=== PATIENT | male | born 1935 | race Caucasian/White ===

== ENCOUNTER 2017-02-20 10:32 | Emergency (ER) | payer MEDICARE, OTHER, BC ==
[~2017-02-20] VITALS: Ht 172.7 cm; Wt 79.1 kg
[~2017-02-20 10:32] MED LIST: ALTACE10 MG OR; ALTACE10 MG PO; CORTISPORIN OTI10 M1 AD; DILTIAZEM240 M1 OR; DILTIAZEM240 M1 PO; FLEXERIL OR; FLUARIX QUADRIV1 IN1 IM; GLIMEPIRIDE4 MG OR; GLIMEPIRIDE4 MG PO; HALFPRIN162 MG OR; ISMO20 MG OR; JANUVIA100 MG OR; JANUVIA100 MG PO; LORTAB 7.5 PO; LOTRISONE EX; MEDDOSEPAK PO; METFORMIN1000 MG OR; METFORMIN1000 MG PO; METOPROL TAR25 MG PO; METOPROL TAR50 MG OR; NEXIUM40 M1 OR; NEXIUM40 M1 PO; PRANDIN1 MG PO; PRILOSEC20 MG PO; TRUETRACK XX; VIAGRA100 MG PO
[2017-02-20] MEDS ORDERED: AMOXICILLIN500 M2 PO (10:55)
[2017-02-20 12:12] VITALS: BP 155/76
== END 2017-02-20 12:41 | disposition home or self-care (01) ==
LOC: ED 10:32
DX: M65.342 Trigger finger, left ring finger (principal)

== ENCOUNTER 2017-04-26 22:02 | Observation (INO) | payer MEDICARE, OTHER, BC ==
[~2017-04-26] VITALS: Ht 170.2 cm; Wt 81.1 kg
[~2017-04-26 22:02] MED LIST changes: +AMOXICILLIN500 M2 PO
[2017-04-26] MEDS ORDERED: HYDROCHLOROT25 MG PO (22:41)
[2017-04-26] MEDS ORDERED: NOVOLOG MIX SC (22:42)
[2017-04-26 22:47] LABS: HEMATOCRIT 36.1 % (39.0-50.0); IMMATURE GRANULOCYTES 0.5 % (0.0-1.0); MEAN CELL VOLUME 85.5 fL CALC (80.0-100.0); MEAN CORPUSCULAR HGB 30.8 pG CALC (26.0-32.0); NEUT# 2.73 thou/uL (1.82-7.42); RED BLOOD COUNT 4.22 mill/uL (4.70-6.10); RED CELL DISTRI WIDTH 13.7 % (11.5-15.5)
[2017-04-26 23:00] LABS: ALBUMIN 4.5 g/dL (3.2-5.0); ALKALINE PHOSPHATASE 81 u/l (38-126); ANION GAP 15 (6-22 (CALC)); BILIRUBIN, TOTAL 0.6 mg/dL (0.0-1.4); BUN 8 mg/dL (8-23); BUN/CREATININE RATIO 10 (12-20 (CALC)); CARBON DIOXIDE 25 mmol/l (22-30); CHLORIDE 86 mmol/l (95-108); CREATININE 0.8 mg/dL (0.7-1.3); GFR > 60 ML/MIN (>=60 (CALC)); GFR FOR AFR.AMER. > 60 ML/MIN (>=60 (CALC)); GLUCOSE 102 mg/dL (82-115); POTASSIUM 3.8 mmol/l (3.5-5.1); SGOT/AST 22 u/l (19-48); SGPT/ALT 23 u/l (11-66); SODIUM 123 mmol/l (137-146); TOTAL PROTEIN 7.1 g/dL (6.3-8.2)
[2017-04-27 01:00] VITALS: BP 144/63
[2017-04-27 01:47] LABS: URINE BILIRUBIN - DIPSTICK NEGATIVE (NEGATIVE); URINE BLOOD DIPSTICK NEGATIVE (NEGATIVE); URINE COLOR YELLOW; URINE GLUCOSE - DIPSTICK NEGATIVE (NEGATIVE); URINE KETONE NEGATIVE (NEGATIVE); URINE LEUK ESTERASE NEGATIVE (NEGATIVE); URINE NITRITE - DIPSTICK NEGATIVE (Negative); URINE PROTEIN - DIPSTICK NEGATIVE (NEG-TRACE); URINE UROBILINOGEN - DIPSTICK 0.2 E.U./dL (0.2)
[2017-04-27 01:50] LABS: URINE CLARITY CLEAR
[2017-04-27 08:30] VITALS: BP 169/59
[2017-04-27 09:23] LABS: BARBITURATES NEGATIVE (NEGATIVE); COCAINE NEGATIVE (NEGATIVE); METHADONE NEGATIVE (NEGATIVE); OXCYCODONE NEGATIVE (NEGATIVE); TETRAHYDROCANNABIONOL NEGATIVE (NEGATIVE); TRICYLIC ANTIDEPRESSANTS NEGATIVE (NEGATIVE)
[2017-04-27 10:03] LABS: ANION GAP 17 (6-22 (CALC)); BUN 8 mg/dL (8-23); BUN/CREATININE RATIO 10 (12-20 (CALC)); CALCIUM 9.1 mg/dL (8.4-10.2); CARBON DIOXIDE 23 mmol/l (22-30); CHLORIDE 92 mmol/l (95-108); CREATININE 0.8 mg/dL (0.7-1.3); GFR > 60 ML/MIN (>=60 (CALC)); GFR FOR AFR.AMER. > 60 ML/MIN (>=60 (CALC)); GLUCOSE 290 mg/dL (82-115); POTASSIUM 4.8 mmol/l (3.5-5.1); SODIUM 128 mmol/l (137-146)
[2017-04-27] MEDS ORDERED: ALTACE10 MG PO (10:16)
[2017-04-27 11:08] VITALS: BP 158/68
[2017-04-27 15:27] LABS: ANION GAP 15 (6-22 (CALC)); BUN 9 mg/dL (8-23); BUN/CREATININE RATIO 11 (12-20 (CALC)); CALCIUM 9.2 mg/dL (8.4-10.2); CARBON DIOXIDE 25 mmol/l (22-30); CHLORIDE 95 mmol/l (95-108); CREATININE 0.9 mg/dL (0.7-1.3); GFR > 60 ML/MIN (>=60 (CALC)); GFR FOR AFR.AMER. > 60 ML/MIN (>=60 (CALC)); GLUCOSE 203 mg/dL (82-115); POTASSIUM 4.8 mmol/l (3.5-5.1); SODIUM 131 mmol/l (137-146)
== END 2017-04-27 16:00 | disposition home or self-care (01) ==
LOC: ED 22:02 → ED-I 04-27 00:13 → ED 04-27 00:28 → MS2 04-27 00:29
PROVIDERS: Emergency Medicine; ADMIT Internal Medicine; ATTEND Internal Medicine
DX: E87.1 Hypo-osmolality and hyponatremia (principal); T50.2X5A Adverse effect of carbonic-anhydrase inhibitors, benzothiadiazides and other diuretics, initial encounter; E87.8 Other disorders of electrolyte and fluid balance, not elsewhere classified; I10 Essential (primary) hypertension; E11.9 Type 2 diabetes mellitus without complications; G89.29 Other chronic pain; M54.5 Low back pain; Z79.4 Long term (current) use of insulin

== ENCOUNTER 2017-10-20 12:14 | Observation (INO) | payer MEDICARE, OTHER, BC ==
[~2017-10-20] VITALS: Ht 170.2 cm; Wt 81.7 kg
[~2017-10-20 12:14] MED LIST changes: +HYDROCHLOROT25 MG PO; +NOVOLOG MIX SC
[2017-10-20 12:54] LABS: HEMATOCRIT 40.5 % (39.0-50.0); IMMATURE GRANULOCYTES 0.2 % (0.0-1.0); MEAN CELL VOLUME 87.5 fL CALC (80.0-100.0); MEAN CORPUSCULAR HGB 30.2 pG CALC (26.0-32.0); MEAN CORPUSCULAR HGB CONC 34.6 g/L CALC (32.0-36.0); NEUT# 2.75 thou/uL (1.82-7.42); RED BLOOD COUNT 4.63 mill/uL (4.70-6.10); RED CELL DISTRI WIDTH 13.6 % (11.5-15.5)
[2017-10-20 13:05] LABS: ALBUMIN 4.3 g/dL (3.2-5.0); ALKALINE PHOSPHATASE 85 u/l (38-126); ANION GAP 12 (6-22 (CALC)); BILIRUBIN, TOTAL 0.6 mg/dL (0.0-1.4); BUN 9 mg/dL (8-23); BUN/CREATININE RATIO 10 (12-20 (CALC)); CARBON DIOXIDE 26 mmol/l (22-30); CHLORIDE 98 mmol/l (95-108); CREATININE 0.9 mg/dL (0.7-1.3); GFR > 60 ML/MIN (>=60 (CALC)); GFR FOR AFR.AMER. > 60 ML/MIN (>=60 (CALC)); POTASSIUM 3.8 mmol/l (3.5-5.1); SGOT/AST 23 u/l (19-48); SGPT/ALT 35 u/l (11-66); SODIUM 132 mmol/l (137-146); TOTAL PROTEIN 7.7 g/dL (6.3-8.2)
[2017-10-20 16:00] VITALS: BP 182/91
[2017-10-20 19:15] VITALS: BP 157/60
[2017-10-20 23:41] VITALS: BP 149/88
[2017-10-21 04:30] LABS: HEMATOCRIT 38.9 % (39.0-50.0); HEMOGLOBIN 13.2 g/dl (14.0-18.0); IMMATURE GRANULOCYTES 0.4 % (0.0-1.0); MEAN CELL VOLUME 89.4 fL CALC (80.0-100.0); MEAN CORPUSCULAR HGB 30.3 pG CALC (26.0-32.0); MEAN CORPUSCULAR HGB CONC 33.9 g/L CALC (32.0-36.0); NEUT# 2.25 thou/uL (1.82-7.42); RED BLOOD COUNT 4.35 mill/uL (4.70-6.10); RED CELL DISTRI WIDTH 13.7 % (11.5-15.5)
[2017-10-21 04:48] LABS: ALBUMIN 3.5 g/dL (3.2-5.0); ALKALINE PHOSPHATASE 69 u/l (38-126); ANION GAP 10 (6-22 (CALC)); BILIRUBIN, TOTAL 0.4 mg/dL (0.0-1.4); BUN 10 mg/dL (8-23); BUN/CREATININE RATIO 10 (12-20 (CALC)); CALCULATED LDLCHOLESTEROL 84 mg/dL (62-129 (CALC)); CARBON DIOXIDE 28 mmol/l (22-30); CHLORIDE 100 mmol/l (95-108); CHOLESTEROL HDL RATIO 3.6 (<4.4 (CALC)); CREATININE 0.9 mg/dL (0.7-1.3); GFR > 60 ML/MIN (>=60 (CALC)); GFR FOR AFR.AMER. > 60 ML/MIN (>=60 (CALC)); HDL CHOLESTEROL 38 mg/dL (>=40); POTASSIUM 3.8 mmol/l (3.5-5.1); SGOT/AST 16 u/l (19-48); SGPT/ALT 30 u/l (11-66); SODIUM 135 mmol/l (137-146); TOTAL CHOLESTEROL 137 mg/dl (0-199); TOTAL TRIGLYCERIDES 79 mg/dl (30-149); VLDL CHOLESTROL 16 mg/dl (0-38 (CALC))
[2017-10-21 04:52] LABS: TOTAL PROTEIN 6.1 g/dL (6.3-8.2)
[2017-10-21 05:12] VITALS: BP 123/57
[2017-10-21 08:12] VITALS: BP 174/71
[2017-10-21] MEDS ORDERED: TRUETRACK XX (08:38)
[2017-10-21] MEDS ORDERED: METFORMIN1000 MG PO (08:38)
[2017-10-21 12:22] VITALS: BP 147/72
== END 2017-10-21 12:30 | disposition home or self-care (01) ==
LOC: ED 12:14 → ED-I 13:35 → ED 14:23 → MS2 14:24
PROVIDERS: Emergency Medicine; ADMIT Internal Medicine Geriatric Medicine; ATTEND Internal Medicine Geriatric Medicine
DX: I10 Essential (primary) hypertension (principal); E87.1 Hypo-osmolality and hyponatremia; E11.42 Type 2 diabetes mellitus with diabetic polyneuropathy; M19.90 Unspecified osteoarthritis, unspecified site; I25.10 Atherosclerotic heart disease of native coronary artery without angina pectoris; R07.9 Chest pain, unspecified

== ENCOUNTER 2018-08-14 22:09 | Emergency (ER) | payer MEDICARE, BC ==
[~2018-08-14] VITALS: Ht 172.7 cm; Wt 80.0 kg
[~2018-08-14 22:09] MED LIST changes: +HYDRALAZINE25 MG PO; +RAMIPRIL2.5 MG PO
[2018-08-14] MEDS ORDERED: LOPRESSOR50 M2 PO (23:08)
[2018-08-14 23:36] VITALS: BP 134/60
== END 2018-08-14 23:36 | disposition home or self-care (01) ==
LOC: ED 22:09
DX: I10 Essential (primary) hypertension (principal); E11.9 Type 2 diabetes mellitus without complications

== ENCOUNTER 2018-08-19 19:28 | Emergency (ER) | payer MEDICARE, BC ==
[~2018-08-19] VITALS: Ht 172.7 cm; Wt 82.0 kg
[~2018-08-19 19:28] MED LIST changes: +LOPRESSOR50 M2 PO
[2018-08-19 22:34] VITALS: BP 132/61
== END 2018-08-19 22:36 | disposition home or self-care (01) ==
LOC: ED 19:28
DX: I10 Essential (primary) hypertension (principal); E11.9 Type 2 diabetes mellitus without complications

== ENCOUNTER 2018-08-21 17:09 | Emergency (ER) | payer MEDICARE, BC ==
[~2018-08-21] VITALS: Ht 172.7 cm; Wt 81.8 kg
[2018-08-21 20:34] VITALS: BP 165/72
== END 2018-08-21 20:33 | disposition home or self-care (01) ==
LOC: ED 17:09
DX: I10 Essential (primary) hypertension (principal); E11.9 Type 2 diabetes mellitus without complications

== ENCOUNTER 2019-05-12 15:35 | Observation (INO) | payer MEDICARE, BC ==
[~2019-05-12] VITALS: Ht 172.7 cm; Wt 82.0 kg
--- NOTE | 2019-05-12 15:35 | NUR ---
PT DIRECTLY TO ROOM VIA WHEELCHAIR.
--- NOTE | 2019-05-12 15:55 | NUR ---
AFTER NITRO ADMINISTRATION PAIN NOW 4/10 AND BP 159/69.
[2019-05-12] MEDS ORDERED: NEXIUM40 M1 PO (16:03)
[2019-05-12] MEDS ORDERED: SUPER B COM2 PO (16:04)
[2019-05-12] MEDS ORDERED: DOXAZOSIN4 MG PO (16:05)
--- NOTE | 2019-05-12 16:06 | NUR ---
PT STATES PAIN STARTED TODAY ABOUT 4 THEN INTO HIS LEFT ARM ALSO STATES HE TOOK HIS BP AND IT WAS CLIMBING, HE TOOK HIS CARDIZEM EARLY HOPING IT WOULD HELP BUT IT DIDN'T, STATE THE NITROHELPED THE PAIN AND HISBP IMPROVED WELL, MD AWARE, WILL CONTINUE TO MONITOR
[2019-05-12 16:28] LABS: HEMOGLOBIN 13.3 g/dl (14.0-18.0); IMMATURE GRANULOCYTES 0.2 % (0.0-5.0); MEAN CELL VOLUME 91.1 fL CALC (80.0-100.0); MEAN CORPUSCULAR HGB 31.1 pG CALC (26.0-32.0); MEAN CORPUSCULAR HGB CONC 34.1 g/L CALC (32.0-36.0); NEUT# 2.71 thou/uL (1.82-7.42); RED BLOOD COUNT 4.28 mill/uL (4.70-6.10)
[2019-05-12 16:49] LABS: ANION GAP 17 (6-22 (CALC)); BUN 11 mg/dL (8-23); BUN/CREATININE RATIO 13 (12-20 (CALC)); CARBON DIOXIDE 23 mmol/l (22-30); CHLORIDE 94 mmol/l (95-108); CREATININE 0.8 mg/dL (0.7-1.3); GFR > 60 ML/MIN (>=60 (CALC)); GFR FOR AFR.AMER. > 60 ML/MIN (>=60 (CALC)); POTASSIUM 4.3 mmol/l (3.5-5.1); SODIUM 130 mmol/l (137-146)
--- NOTE | 2019-05-12 16:51 | NUR ---
RESTING WITH NO COMPLAINTS OFFERED AT THIS TIME WILL CONTINUE TO MONITOR
--- NOTE | 2019-05-12 17:15 | NUR ---
PT RESTING NO NEW COMPLAINTS PROVIDED, REMAINS AT BEDSIDE CALL CODEYMANJINDER KEARNEY.
--- NOTE | 2019-05-12 17:42 | NUR ---
MEDICATED WITH NITRO SL, PT VERBALIZES UNDERSTANDING OF PLANNED ADMISSION.
--- NOTE | 2019-05-12 19:00 | NUR ---
VOIDED 650 CLEAR YELLOW URINE. EATING DINNER
--- NOTE | 2019-05-12 19:30 | NUR ---
Admission Note Report Given to: JAMES MAYER Transported by: Wheelchair X Stretcher Transported with: X Nurse Transporter X Patent IV O2 X Veneer Clipper Location: ICU X [facility]
[2019-05-13 04:45] VITALS: BP 189/73
[2019-05-13 06:05] LABS: CHOLESTEROL HDL RATIO 3.9 (<4.4 (CALC))
--- NOTE | 2019-05-13 08:00 | NUR ---
PATIENT A/OX4, NO S/S RESP DISTRESS, NO C/O PAIN, NO C/O CHEST PAIN, WILL CONTINUE MONITOR PATIENT HOURLY ROUNDING
[2019-05-13 08:15] VITALS: BP 157/71
[2019-05-13 11:37] VITALS: BP 198/76
[2019-05-13] MEDS ORDERED: CLONIDINE0.1 MG PO (13:04)
[2019-05-13] MEDS ORDERED: NITROSTAT0.4 MG SL (13:05)
[2019-05-13 13:13] VITALS: BP 181/72
--- NOTE | 2019-05-13 14:06 | NUR ---
PATIENT A\O X4, NO C/O PAIN, NO S/S RESP DISTRESS, PATIENT ON ROOM AIR, PATIENT ELEVATED BLOOD PRESSURE TREATED PATIENT BLOOD PRESSURE PER MD PRN ORDER, PATIENT BLOOD PRESSURE DECREASE FROM 198/76 62 TO 181/[address] MCCARTY AWARE OF PATIENT BLOOD PRESSURE, PATIENT WILL BE DC WHEN PATIENT BLOOD PRESSRE SBP IS 160 PER MD ORDERS, WILL CONTINUE TO MONITOR PATIENT HOURLY ROUNDING, CALL LIGHT WITHIN REACH
[2019-05-13 14:46] VITALS: BP 166/80
--- NOTE | 2019-05-13 15:15 | NUR ---
PATIENT A/OX4, NO C/O PAIN, NO S/S RESP DISTRESS, PATIENT ON ROOM AIR, PATIENT BLOOD PRESSURE DECREASE NOTIFIED , PATIENT OK TO DISCHARGE TO HOME PER MD, EDUCATED PATIENT ABOUT DISCHARGE INSTRUCTIONS, PATIENT UNDERSTOOD DISCHARGED INSTRUCTIONS, PROVIDED PATIENT WITH WRITTEN INFORMATION ABOUT S/S OF STROKE AND CHEST PAIN, PATIENT AMBULATED OFF FLOOR WITH STAFF AND FAMILY MEMBER
== END 2019-05-13 15:15 | disposition home health service (06) ==
LOC: ED 15:35 → ED-I 16:29 → ED 17:49 → MS2 17:50
PROVIDERS: Family Medicine; ADMIT Internal Medicine; ATTEND Internal Medicine
DX: R07.9 Chest pain, unspecified (principal); I16.0 Hypertensive urgency; I10 Essential (primary) hypertension; E11.9 Type 2 diabetes mellitus without complications; Z79.84 Long term (current) use of oral hypoglycemic drugs
CPT/HCPCS: G0378

== ENCOUNTER 2019-06-04 | Emergency (ER) | payer MEDICARE, BC ==
[~2019-06-04] MED LIST changes: +CLONIDINE0.1 MG PO; +DOXAZOSIN4 MG PO; +NITROSTAT0.4 MG SL; +SUPER B COM2 PO
[2019-06-04] MEDS ORDERED: LOPRESSOR25 MG PO (03:21)
[2019-06-04] MEDS ORDERED: NOVOLIN 70/30 SC (03:23)
[2019-06-04 03:51] LABS: IMMATURE GRANULOCYTES 0.2 % (0.0-5.0); MEAN CELL VOLUME 88.5 fL CALC (80.0-100.0); MEAN CORPUSCULAR HGB 31.1 pG CALC (26.0-32.0); MEAN CORPUSCULAR HGB CONC 35.1 g/L CALC (32.0-36.0); NEUT# 2.69 thou/uL (1.82-7.42); RED BLOOD COUNT 4.18 mill/uL (4.70-6.10); RED CELL DISTRI WIDTH 12.5 % (11.5-15.5)
[2019-06-04 04:00] LABS: ALBUMIN 4.1 g/dL (3.2-5.0); ALKALINE PHOSPHATASE 78 u/l (38-126); AMYLASE 79 u/l (30-110); ANION GAP 14 (6-22 (CALC)); BILIRUBIN, TOTAL 0.7 mg/dL (0.0-1.4); BUN 13 mg/dL (8-23); BUN/CREATININE RATIO 15 (12-20 (CALC)); CARBON DIOXIDE 24 mmol/l (22-30); CHLORIDE 96 mmol/l (95-108); CREATININE 0.9 mg/dL (0.7-1.3); GFR > 60 ML/MIN (>=60 (CALC)); GFR FOR AFR.AMER. > 60 ML/MIN (>=60 (CALC)); LIPASE 101 u/l (23-300); MAGNESIUM 1.9 mg/dL (1.6-2.3); POTASSIUM 3.6 mmol/l (3.5-5.1); SGOT/AST 20 u/l (19-48); SODIUM 131 mmol/l (137-146); TOTAL PROTEIN 7.2 g/dL (6.3-8.2)
[2019-06-04 04:12] LABS: MYOGLOBIN 46 ng/mL (0 - 121)
[2019-06-04 04:31] LABS: TSH, 3RD GENERATION 3.38 uIU/mL (0.47 - 4.68)
== END 2019-06-04 06:25 | disposition short-term general hospital (02) ==
PROVIDERS: Family Medicine
DX: R07.9 Chest pain, unspecified (principal); R55 Syncope and collapse; R00.1 Bradycardia, unspecified; S06.9X1A Unspecified intracranial injury with loss of consciousness of 30 minutes or less, initial encounter; I10 Essential (primary) hypertension; E11.9 Type 2 diabetes mellitus without complications; W19.XXXA Unspecified fall, initial encounter; Z79.4 Long term (current) use of insulin

== ENCOUNTER 2020-07-01 16:50 | Emergency (ER) | payer MEDICARE, BC ==
[~2020-07-01] VITALS: Ht 172.7 cm; Wt 73.0 kg
[~2020-07-01 16:50] MED LIST changes: +LOPRESSOR25 MG PO; +NOVOLIN 70/30 SC
[2020-07-01 17:17] LABS: HEMATOCRIT 36.7 % (39.0-50.0); HEMOGLOBIN 12.5 g/dl (14.0-18.0); IMMATURE GRANULOCYTES 0.3 % (0.0-5.0); MEAN CELL VOLUME 93.1 fL CALC (80.0-100.0); MEAN CORPUSCULAR HGB 31.7 pG CALC (26.0-32.0); MEAN CORPUSCULAR HGB CONC 34.1 g/dL CAL (32.0-36.0); NEUT# 3.8 thou/uL (1.82-7.42); RED BLOOD COUNT 3.94 mill/uL (4.70-6.10); RED CELL DISTRI WIDTH 12.3 % (11.5-15.5)
[2020-07-01 17:38] LABS: ALBUMIN 4.3 g/dL (3.2-5.0); ALKALINE PHOSPHATASE 95 u/l (38-126); AMYLASE 79 u/l (30-110); ANION GAP 13 (6-22 (CALC)); BILIRUBIN, TOTAL 0.6 mg/dL (0.0-1.4); BUN 9 mg/dL (8-23); BUN/CREATININE RATIO 10 (12-20 (CALC)); CARBON DIOXIDE 28 mmol/l (22-30); CHLORIDE 90 mmol/l (95-108); GFR > 60 ML/MIN (>=60 (CALC)); GFR FOR AFR.AMER. > 60 ML/MIN (>=60 (CALC)); LIPASE 119 u/l (23-300); POTASSIUM 4.1 mmol/l (3.5-5.1); SGOT/AST 18 u/l (19-48); SODIUM 126 mmol/l (137-146); TOTAL PROTEIN 7.1 g/dL (6.3-8.2)
[2020-07-01 17:39] LABS: ACT PARTIAL THROMBO TIME 29.1 SECONDS (20.0-32.5); PROTHROMBIN TIME 10.4 SECONDS (9.0-12.5)
[2020-07-01 17:52] VITALS: BP 194/80
[2020-07-01] MEDS ORDERED: ESCITALOPRAM OX10 MG PO (18:07)
[2020-07-01] MEDS ORDERED: GLIPIZIDE5 M2 PO (18:08)
[2020-07-01] MEDS ORDERED: JANUVIA50 MG PO (18:10)
[2020-07-01] MEDS ORDERED: CRESTOR5 MG PO (18:10)
[2020-07-01] MEDS ORDERED: MULTI VIT PO (18:11)
== END 2020-07-01 20:40 | disposition home or self-care (01) ==
LOC: ED 16:50
DX: R07.9 Chest pain, unspecified (principal); I10 Essential (primary) hypertension; E11.9 Type 2 diabetes mellitus without complications; I20.9 Angina pectoris, unspecified; Z79.84 Long term (current) use of oral hypoglycemic drugs; Z20.822 Contact with and (suspected) exposure to COVID-19
CPT/HCPCS: Q9967